=== PATIENT | female | born 2000 | race African-American/Black ===

== ENCOUNTER 2025-03-08 11:41 | Outpatient (CLI) | payer MEDICAID, OTHER ==
[2025-03-08 12:28] LABS: ALT (SGPT) 7 U/L (Less than 34); AST (SGOT) 11 U/L (11-34); Albumin 3.6 g/dL (3.1-4.5); Alkaline Phosphatase 165 U/L (40-110); Anion Gap 16 mmol/L (10-20); BUN (Urea Nitrogen) 8 mg/dL (7.0-18.7); Bilirubin, Total 0.3 mg/dL (0.3-1.2); Calc. Creatinine Clearance 0 mL/min (70-130); Calcium 8.6 mg/dL (7.8-10.44); Carbon Dioxide 20 mmol/L (22-29); Chloride 103 mmol/L (98-107); Globulin 3.4 g/dL (2.4-3.5); Glucose 313 mg/dL (70-105); Magnesium 1.7 mg/dL (1.6-2.6); Potassium 4.2 mmol/L (3.5-5.1); Sodium 135 mmol/L (136-145)
== END 2025-03-08 11:42 | disposition home or self-care (01) ==
LOC: BURLAB 11:41
PROVIDERS: ATTEND Nurse Practitioner Family
DX: Z01.89 Encounter for other specified special examinations (principal); Z86.39 Personal history of other endocrine, nutritional and metabolic disease
CPT/HCPCS: 36415; 80053; 83735; 84100